=== PATIENT | male | born 1980 | race Caucasian/White ===

== ENCOUNTER 2022-12-22 16:17 | Emergency (ER) | payer OTHER ==
[2022-12-22] MEDS ORDERED: NA CHLORIDE 0.9% 1,000 ML ONE (16:39)
[2022-12-22] MEDS ORDERED: HYDROMORPHONE HCL 1 MG/ML INJ ONE ×2 (16:39→17:03)
[2022-12-22] MEDS ORDERED: ONDANSETRON 4 MG/2 ML VIAL ONE (16:39)
[2022-12-22 16:46] LABS: Absolute Lymphocytes (CBC) 2.8 K/uL (0.7-4.9); Hematocrit 47.1 % (39.6-49.0); Lymphocytes % 20.7 % (15.3-44.8); MPV 6.9 fL (7.6-11.3); Platelets 325 thou/uL (152-406); RBC Red Blood Cell Count 4.85 M/uL (4.33-5.43)
[2022-12-22 17:04] LABS: Potassium 4.2 mEq/L (3.5-5.1)
[2022-12-22] MEDS ORDERED: METHOCARBAMOL 1,000 MG/10 ML VIAL ONE (17:23)
[2022-12-22] MEDS ORDERED: KETOROLAC 30 MG/ML INJ ONE (17:56)
--- NOTE | 2022-12-22 18:11 | RAD REPORT ---
EXAM DESCRIPTION: Alec Single View12/22/2022 5:25 pm CLINICAL HISTORY: PAIN COMPARISON: No comparisons TECHNIQUE: Portable AP view of the chest. FINDINGS: The lungs show no consolidation. Central interstitial prominence and streaky opacities. De creased inspiratory effort limits evaluation. . No pneumothorax or effusion. Mild cardiomegaly. Medi astinal contours are unremarkable. IMPRESSION: Central interstitial prominence which suggests central venous congestion/CHF.
[2022-12-22 18:18] LABS: Specific Gravity 1.026 (1.005-1.030); Urine Bacteria None Seen /HPF (<20); Urine Bilirubin NEGATIVE (Negative); Urine Blood Negative (Negative); Urine Clarity Clear (Clear); Urine Color Yellow (Yellow); Urine Glucose NEGATIVE (Negative); Urine Mucus Slight /HPF (None Seen); Urine Protein TRACE (Negative); Urine RBC <5 /HPF (None Seen); Urine Urobilinogen Normal (Normal); Urine pH 5.5 (5.0-7.0)
[2022-12-22] MEDS ORDERED: NA CHLORIDE 0.9% 500 ML ONE (18:40)
[2022-12-22] MEDS ORDERED: HYDROMORPHONE HCL 2 MG/ML inj ONE (18:40)
--- NOTE | 2022-12-22 19:44 | RAD REPORT ---
EXAM DESCRIPTION: CT - Head C Spine Cap Linda Christopher - 12/22/2022 6:47 pm CLINICAL HISTORY: TRAUMA COMPARISON: No comparisons TECHNIQUE: Head and cervical spine CT images were obtained without IV contrast. Chest, abdomen, and pelvis CT images were obtained following intravenous administration of 90 mL Isovue-300. Multiplanar reformats were generated and reviewed. All CT scans are performed using dose optimization technique as appropriate and may include automated exposure control or mA/KV adjustment according to patient size. FINDINGS: CT HEAD: No intracranial hemorrhage, mass effect, or edema. No evidence of acute territorial infarct. Well-cir cumscribed midline posterior fossa cyst just inferior to the vermis, extending towards the foramen ma gnum, measuring 3.1 x 1.8 x 1.4 cm, most suggestive of an arachnoid cyst. No midline shift or other a bnormal fluid collection. The ventricles are normal in caliber and configuration for age. Basal ciste rns are patent. Mastoid aircells and paranasal sinuses are clear. No acute skull fracture. CT CERVICAL SPINE: No acute cervical spine fracture or subluxation. Vertebral body heights are well maintained. Facet rosalina ints are normal in alignment. No hyperattenuating canal hematoma. Prevertebral and paraspinous soft t issues are unremarkable. CT CHEST: No pneumothorax, pulmonary contusion or pleural fluid collection. No mediastinal hematoma and the aor ta and pulmonary arteries are unremarkable. No chest will mass or abnormal axillary finding. No displ aced rib fracture or other significant bony finding. CT ABDOMEN/ PELVIS: No evidence of traumatic injury to solid abdominal viscera. Gallbladder and biliary tree are unremark able. Left pelvic kidney. No bowel injury or significant finding. No free air, free fluid or abnormal fat stranding. No urinary bladder abnormality. Mildly displaced posterior right ninth through eleventh rib fractures. IMPRESSION: Mildly displaced posterior right ninth through eleventh rib fractures. No other acute traumatic findings. Left pelvic kidney. Posterior fossa 3.1 cm arachnoid cyst.
[2022-12-22] MEDS ORDERED: FENTANYL CITR 100 MCG/2 ML ONE (19:45)
[2022-12-22] MEDS ORDERED: DIAZEPAM 5 MG TABLET ONE (20:02)
--- NOTE | 2022-12-22 20:13 | EDPHYS ---
Physician Documentation [facility] Name: Barrett Agrawal Age: 42 yrs Sex: Male : 1980 Arrival Date: 12/22/2022 Time: 16:17 Bed 19 Private MD: ED Physician Hui Nieves HPI: 12/22 16:25 This 42 yrs old Male presents to ER via EMS with complaints of Fall down Stairs. cp 16:25 Mechanism of injury: Fall: while walking down stairs outdoors. cp 16:25 Associated injuries: The patient sustained right mid and lower back pain. Onset: The cp symptoms/episode began/occurred just prior to arrival. Patient presents to ED by EMS after reportedly slipping and falling back on wet stairs at home. Patient then reportedly fell down approximately 10 stairs. Patient denies hitting head, denies LOC. Historical: - Allergies: 16:19 Phenergan; ll1 - PMHx: 16:19 Hypertensive disorder; ll1 - Immunization history:: Adult Immunizations up to date. - Social history:: Smoking status: Patient denies any tobacco usage or history of. ROS: 16:30 Constitutional: Negative for body aches, chills, fever, poor PO intake, cp 16:30 Eyes: Negative for injury, pain, redness, and discharge, cp 16:30 Neck: Negative for stiffness, 16:30 Cardiovascular: Negative for chest pain, palpitations, 16:30 Respiratory: Negative for cough, shortness of breath, wheezing, 16:30 Abdomen/GI: Negative for abdominal pain, nausea, vomiting, and diarrhea, 16:30 Back: Positive for pain at rest, pain with movement, of the right subscapular area, right mid back and right low back, 16:30 Neuro: Negative for altered mental status, loss of consciousness, numbness, weakness, 16:30 All other systems are negative, Exam: 16:35 Constitutional: The patient appears in no acute distress, alert, awake, cp non-diaphoretic, non-toxic, well developed, well nourished, in obvious pain, uncomfortable, overweight 16:35 Head/Face: Normocephalic, atraumatic. cp 16:35 Eyes: Periorbital structures: appear normal, Conjunctiva: normal, no exudate, no injection, Sclera: no appreciated abnormality, Lids and lashes: appear normal, bilaterally, 16:35 ENT: External ear(s): are unremarkable, Nose: is normal, Mouth: Lips: moist, Oral mucosa: pink and intact, moist, Posterior pharynx: is normal, airway is patent, no erythema, no exudate, 16:35 Neck: C-spine: vertebral tenderness, is not appreciated, crepitus, is not appreciated, ROM/movement: is normal, is supple, without pain, no range of motions limitations, 16:35 Chest/axilla: Inspection: normal, Palpation: is normal, no crepitus, no tenderness, 16:35 Cardiovascular: Rate: tachycardic, Rhythm: regular, Edema: is not appreciated, JVD: is not appreciated, 16:35 Respiratory: the patient does not display signs of respiratory distress, Respirations: shallow respirations, that is moderate, Breath sounds: are clear throughout, no decreased breath sounds, no stridor, no wheezing, 16:35 Abdomen/GI: Inspection: obese Palpation: abdomen is soft and non-tender, in all quadrants, 16:35 Back: pain, that is severe, of the right subscapular area, right mid back and right low back, ROM is painful, with all movement, 16:35 Skin: no rash present. 16:35 Neuro: Orientation: to person, place \T\ time. Mentation: is normal, Motor: moves all fours, strength is normal, Sensation: is normal, Gait: is steady, Vital Signs: 16:30 BP 164 / 100; Pulse 120; Resp 22; Temp 98; Pulse Ox 98% ; Pain 10/10; ll1 16:52 Pulse 113; Resp 20; Pulse Ox 97% on R/A; ll1 17:15 Pulse 104; Resp 20; Pulse Ox 98% ; ll1 18:30 BP 156 / 103; Pulse 100; Resp 18; Pain 8/10; ll1 19:30 BP 154 / 84; Pulse 91; Resp 18 S; Pulse Ox 98% on R/A; ha1 20:00 BP 154 / 82; Pulse 99; Resp 19 S; Pulse Ox 94% on R/A; ha1 16:30 Pain Scale: Adult ll1 18:30 Pain Scale: Adult ll1 MDM: 16:21 Patient medically screened. cp 17:00 Differential diagnosis: closed head injury, C spine fracture, T spine fracture, L spine cp fracture. 20:10 Data reviewed: vital signs, nurses notes, lab test result(s), radiologic studies, CT cp scan. 20:10 Consideration of Admission/Observation Escalation of care including cp admission/observation considered. I considered the following discharge prescriptions or medication management in the emergency department Medications were administered in the Emergency Department. See MAR. Care significantly affected by the following chronic conditions: Hypertension. Counseling: I had a detailed discussion with the patient and/or guardian regarding the historical points, exam findings, and any diagnostic results supporting the discharge/admit diagnosis, lab results, radiology results, to return to the emergency department if symptoms worsen or persist or if there are any questions or concerns that arise at home. Response to treatment: the patient's symptoms have markedly improved after treatment, and as a result, I will discharge patient. 20:12 ED course: VSS. Pain improved with meds. Discussed results of CT trauma gram showing cp multiple right posterior rib fractures. Will discharge to home for continued monitoring with instructions to return to ED worsening symptoms. 12/22 16:23 Order name: Basic Metabolic Panel; Complete Time: 17:35 12/22 17:35 Interpretation: Normal except: ANION GAP 16.2; GFR 75. 12/22 16:23 Order name: CBC with Diff; Complete Time: 17:35 12/22 16:23 Order name: Urinalysis w/ reflexes; Complete Time: 19:11 12/22 19:11 Interpretation: Normal except: UKET TRACE; UPROT TRACE. 12/22 16:23 Order name: CT Traumagram (Head C Spine CAP W Con); Complete Time: 19:46 12/22 16:23 Order name: XRAY Chest (1 view); Complete Time: 19:11 12/22 20:05 Order name: INCENTIVE SPIROMETRY 12/22 16:23 Order name: Labs collected and sent; Complete Time: 16:37 12/22 16:23 Order name: IV; Complete Time: 16:39 12/22 17:57 Order name: NPO; Complete Time: 18:30 cp Administered Medications: 19:27 Discontinued: ns 0.9% 1000 ml IV at 500 ml/hr Per protocol; 1000 mL bolus cp 16:23 CANCELLED (Physician Discretion): morphineor iv 4 mg IVP once over 4 mins cp 16:25 Drug: Ondansetron IVP 4 mg IVP once; over 2 minutes Route: IVP; Site: left antecubital; 1 16:28 Drug: HYDROmorphone IVP 1 mg IVP once {Note: RASS 0, pain 10/10.} Route: IVP; Site: ll1 left antecubital; 16:37 Drug: NS 0.9% IV 1000 ml IV at 1 bolus Per protocol; 1000 mL bolus Route: IV; Rate: 1 ll1 bolus; Site: left antecubital; 16:51 Drug: HYDROmorphone IVP 1 mg IVP once {Note: RASS 0, pain 10/10.} Route: IVP; Site: ll1 left antecubital; 17:14 Drug: Methocarbamol IVPB 1 grams IVPB once over 1 hrs; (mix in NS 100 mL) Route: IVPB; ll1 Infused Over: 1 hrs; Site: left antecubital; 17:46 Drug: Ketorolac IVP 15 mg IVP once Route: IVP; Site: left antecubital; [facility] 18:30 Drug: NS 0.9% IV 1000 ml IV at 500 ml/hr Per protocol; 1000 mL bolus Route: IV; Rate: ll1 500 ml/hr; Site: left antecubital; 18:30 Drug: HYDROmorphone IVP 2 mg IVP once; place in IV fluids and infuse Route: IVP; Site: ll1 left antecubital; 19:00 Follow up: Response: No adverse reaction; Pain is unchanged, physician notified ha1 19:30 Drug: fentaNYL (PF) IVP 50 mcg IVP once Route: IVP; Site: left antecubital; ha1 20:00 Follow up: Response: No adverse reaction; Pain is decreased; RASS: Alert and Calm (0) ha1 19:45 Drug: Diazepam IVP 10 mg IVP once Route: IVP; Site: left antecubital; ha1 20:25 Follow up: Response: No adverse reaction ha1 Disposition Summary: 12/22/22 20:12 Discharge Ordered Notes: Location: Home cp Problem: new cp Symptoms: have improved cp Condition: Stable cp Diagnosis - Multiple fractures of ribs, right side cp - Fall (on) (from) other stairs and steps cp Followup: cp - With: Private Physician - When: 2 - 3 days - Reason: Recheck today's complaints Discharge Instructions: - Discharge Summary Sheet cp - Rib Fracture cp - How to Use an Incentive Spirometer cp Forms: - Medication Reconciliation Form cp - Thank You Letter cp - Antibiotic Education cp - Prescription Opioid Use cp - Patient Portal Instructions cp - Leadership Thank You Letter cp - Work release form ha1 Prescriptions: - acetaminophen-codeine 300-30 mg Oral tablet - take 2 tablet ORAL route every 8-10 hours as needed for pain; 16 tablet; cp Refills: 0, Product Selection Permitted - Baclofen 10 mg Oral Tablet - take 1 tablet ORAL route 3 times per day; 20 tablet; Refills: 0, Product cp Selection Permitted - Diclofenac Sodium 75 mg Oral Tablet Sustained Release - take 1 tablet ORAL route 2 times per day; 30 tablet; Refills: 0, Product cp Selection Permitted Signatures: Dispatcher [employer] EDMS Pete Mehta PA PA cp Armando Traylor RN RN 1 Andreea Lewis RN RN 1 Corrections: (The following items were deleted from the chart) 16:23 16:23 morphine IVP or IV 4 mg IVP once over 4 mins ordered. cp cp
--- NOTE | 2022-12-22 20:13 | ER ---
Nurse's Notes [facility] Name: Barrett Agrawal Age: 42 yrs Sex: Male : 1980 Arrival Date: 12/22/2022 Time: 16:17 Bed 19 Private MD: Diagnosis: Multiple fractures of ribs, right side;Fall (on) (from) other stairs and steps Presentation: 12/22 16:20 Coronavirus screen: Client denies travel out of the [place] in the last 14 days. At this ll1 time, the client does not indicate any symptoms associated with coronavirus-19. Ebola Screen: Patient denies travel to an Ebola-affected area in the 21 days before illness onset. Initial Sepsis Screen: Does the patient meet any 2 criteria? No. Patient's initial sepsis screen is negative. Does the patient have a suspected source of infection? No. Patient's initial sepsis screen is negative. Risk Assessment: Do you want to hurt yourself or someone else? Patient reports no desire to harm self or others. Onset of symptoms was December 22, 2022. 16:20 Method Of Arrival: EMS: [facility] ll1 16:20 Acuity: FIDELIA 3 ll1 16:36 Chief complaint: Patient states: [place] [employer]. Extreme ll1 back pain since. No LOC or head injury. Historical: - Allergies: 16:19 Phenergan; ll1 - PMHx: 16:19 Hypertensive disorder; ll1 - Immunization history:: Adult Immunizations up to date. - Social history:: Smoking status: Patient denies any tobacco usage or history of. Screenin:00 [facility] ED Fall Risk Assessment (Adult) History of falling in the last 3 months, ha1 including since admission Yes- single mechanical fall (1 pt) Confusion or Disorientation No (0 pts) Intoxicated or Sedated No (0 pts) Impaired Gait No (0 pts) Mobility Assist Device Used No (0 pt) Altered Elimination No (0 pt) Score/Fall Risk Level 0 - 2 = Low Risk Oriented to surroundings, Maintained a safe environment, Educated pt \\T\\ family on fall prevention, incl call for assistance when getting out of bed, Hourly rounding (assess needs \\T\\ fall precautionary measures) done. Abuse screen: Denies threats or abuse. Denies injuries from another. Nutritional screening: No deficits noted. Tuberculosis screening: No symptoms or risk factors identified. Assessment: 16:51 Reassessment: No changes from previously documented assessment. Patient and/or family ll1 updated on plan of care and expected duration. Pain level reassessed. Patient is alert, oriented x 3, equal unlabored respirations, skin warm/dry/pink. 17:15 Reassessment: No changes from previously documented assessment. Patient and/or family ll1 updated on plan of care and expected duration. Pain level reassessed. Patient is alert, oriented x 3, equal unlabored respirations, skin warm/dry/pink. 17:33 Reassessment: No changes from previously documented assessment. Patient and/or family ll1 updated on plan of care and expected duration. Pain level reassessed. 17:46 Reassessment: No changes from previously documented assessment. Patient and/or family ll1 updated on plan of care and expected duration. Pain level reassessed. Patient is alert, oriented x 3, equal unlabored respirations, skin warm/dry/pink. 18:30 Reassessment: No changes from previously documented assessment. Patient and/or family ll1 updated on plan of care and expected duration. Pain level reassessed. Patient is alert, oriented x 3, equal unlabored respirations, skin warm/dry/pink. 19:06 Reassessment: No changes from previously documented assessment. Patient and/or family ll1 updated on plan of care and expected duration. Pain level reassessed. Patient is alert, oriented x 3, equal unlabored respirations, skin warm/dry/pink. 19:50 General: Appears uncomfortable, Behavior is cooperative, anxious. Pain: Complains of ha1 pain in back Pain does not radiate. Pain currently is 10 out of 10 on a pain scale. Quality of pain is described as sharp, shooting, throbbing. Neuro: Level of Consciousness is awake, alert, obeys commands, Oriented to person, place, time, situation. Cardiovascular: Patient's skin is warm and dry. Respiratory: Airway is patent Respiratory effort is even, unlabored, Respiratory pattern is regular, symmetrical. Derm: Skin is pink, warm \\T\\ dry. Musculoskeletal: Circulation, motion, and sensation intact. Range of motion: intact in all extremities, Reports pain in back Pt. states" I fell from some stairs and hurt my back". 20:24 Reassessment: Patient and/or family updated on plan of care and expected duration. Pain ha1 level reassessed. Patient is alert, oriented x 3, equal unlabored respirations, skin warm/dry/pink. pain 7/10 Patient states feeling better. Patient states symptoms have improved. Vital Signs: 16:30 BP 164 / 100; Pulse 120; Resp 22; Temp 98; Pulse Ox 98% ; Pain 10/10; ll1 16:52 Pulse 113; Resp 20; Pulse Ox 97% on R/A; ll1 17:15 Pulse 104; Resp 20; Pulse Ox 98% ; ll1 18:30 BP 156 / 103; Pulse 100; Resp 18; Pain 8/10; ll1 19:30 BP 154 / 84; Pulse 91; Resp 18 S; Pulse Ox 98% on R/A; ha1 20:00 BP 154 / 82; Pulse 99; Resp 19 S; Pulse Ox 94% on R/A; ha1 16:30 Pain Scale: Adult ll1 18:30 Pain Scale: Adult ll1 ED Course: 16:19 Patient arrived in ED. ll1 16:19 Inserted saline lock: 20 gauge in left antecubital area, using aseptic technique. Blood ll1 collected. 16:20 Triage completed. ll1 16:20 Arm band placed on Patient placed in an exam room, on a stretcher. ll1 16:21 Pete Mehta PA is PHCP. cp 16:21 Hui Nieves MD is Attending Physician. cp 16:39 Armando Traylor, JUDY is Primary Nurse. ll1 17:27 XRAY Chest (1 view) In Process Unspecified. EDMS 18:49 CT Traumagram (Head C Spine CAP W Con) In Process Unspecified. EDMS 19:00 Patient has correct armband on for positive identification. Placed in gown. Bed in low ha1 position. Call light in reach. Side rails up X 1. Adult w/ patient. 20:28 No provider procedures requiring assistance completed. IV discontinued, intact, ha1 bleeding controlled, No redness/swelling at site. Pressure dressing applied. 20:47 Provided Education on: how to use spirometer . ha1 Administered Medications: 19:27 Discontinued: ns 0.9% 1000 ml IV at 500 ml/hr Per protocol; 1000 mL bolus cp 16:23 CANCELLED (Physician Discretion): morphineor iv 4 mg IVP once over 4 mins cp 16:25 Drug: Ondansetron IVP 4 mg IVP once; over 2 minutes Route: IVP; Site: left antecubital; 1 16:28 Drug: HYDROmorphone IVP 1 mg IVP once {Note: RASS 0, pain 10/10.} Route: IVP; Site: ll1 left antecubital; 16:37 Drug: NS 0.9% IV 1000 ml IV at 1 bolus Per protocol; 1000 mL bolus Route: IV; Rate: 1 ll1 bolus; Site: left antecubital; 16:51 Drug: HYDROmorphone IVP 1 mg IVP once {Note: RASS 0, pain 10/10.} Route: IVP; Site: ll1 left antecubital; 17:14 Drug: Methocarbamol IVPB 1 grams IVPB once over 1 hrs; (mix in NS 100 mL) Route: IVPB; ll1 Infused Over: 1 hrs; Site: left antecubital; 17:46 Drug: Ketorolac IVP 15 mg IVP once Route: IVP; Site: left antecubital; [facility] 18:30 Drug: NS 0.9% IV 1000 ml IV at 500 ml/hr Per protocol; 1000 mL bolus Route: IV; Rate: ll1 500 ml/hr; Site: left antecubital; 18:30 Drug: HYDROmorphone IVP 2 mg IVP once; place in IV fluids and infuse Route: IVP; Site: ll left antecubital; 19:00 Follow up: Response: No adverse reaction; Pain is unchanged, physician notified ha1 19:30 Drug: fentaNYL (PF) IVP 50 mcg IVP once Route: IVP; Site: left antecubital; ha1 20:00 Follow up: Response: No adverse reaction; Pain is decreased; RASS: Alert and Calm (0) ha1 19:45 Drug: Diazepam IVP 10 mg IVP once Route: IVP; Site: left antecubital; ha1 20:25 Follow up: Response: No adverse reaction ha1 Medication: 20:28 VIS not applicable for this client. ha1 Outcome: 20:12 Discharge ordered by . cp 20:47 Discharged to home ambulatory, with family, ha1 20:47 Condition: stable 20:47 Discharge instructions given to patient, family, Instructed on discharge instructions, follow up and referral plans. medication usage, Demonstrated understanding of instructions, follow-up care, medications, Prescriptions given X 3, 20:48 Patient left the ED. ha1 Signatures: Dispatcher [employer] EDMS Pete Mehta PA PA cp Lewis, Lynsay, RN RN 1 Andreea Lewis RN RN ha1
[2022-12-22 21:04] VITALS: TEMP 98
[2022-12-22 21:14] VITALS: BP 154/82; O2SAT 94
== END 2022-12-22 20:48 | disposition home or self-care (01) ==
LOC: ER 16:17
DX: S22.41XA Multiple fractures of ribs, right side, initial encounter for closed fracture (principal); W10.8XXA Fall (on) (from) other stairs and steps, initial encounter; M54.50 Low back pain, unspecified; I10 Essential (primary) hypertension; Z88.8 Allergy status to other drugs, medicaments and biological substances
CPT/HCPCS: 85025; 81001; 80048; 36415; 70450; 72125; 71260; 74177; 71045; 96375; 96374; 99284; Q9967; J1170 ×3; J3010; J2405; J2800; J7040; J7030